=== PATIENT | male | born 1975 | race Caucasian/White ===

== ENCOUNTER 2016-11-05 20:55 | Emergency (ER) | payer OTHER ==
[~2016-11-05 20:55] MED LIST: ANAPROX DS PO; FLEXERIL PO; LIPITOR20 MG PO; LISINOPRIL20 MG PO; LORTAB 5/500 TA1 TA1 PO; PREDNISONE PO; VOLTAREN75 MG PO
== END 2016-11-05 21:49 | disposition home or self-care (01) ==
LOC: SED 20:55
DX: H60.91 Unspecified otitis externa, right ear (principal); I10 Essential (primary) hypertension; F17.200 Nicotine dependence, unspecified, uncomplicated
CPT/HCPCS: 99282

== ENCOUNTER 2016-11-07 18:53 | Emergency (ER) | payer OTHER | END 2016-11-07 19:26 | disposition home or self-care (01) | LOC: SED 18:53 | DX: H60.91 Unspecified otitis externa, right ear (principal); I10 Essential (primary) hypertension; F17.200 Nicotine dependence, unspecified, uncomplicated | CPT/HCPCS: 99283 ==